=== PATIENT | male | born 1950 | race Hispanic/Latino ===

== ENCOUNTER 2019-03-03 23:42 | Inpatient (IN) | payer OTHER ==
[2019-03-04] MEDS ORDERED: NA CHLORIDE 0.9% 1,000 ML ONE (00:44)
[2019-03-04 01:05] LABS: Absolute Lymphocytes (CBC) 0.8 K/uL (0.7-4.9); Basophils % 0.6 % (0-1.3); Eosinophils % 1.2 % (0-4.4); Hematocrit 32.7 % (39.6-49.0); Lymphocytes % 9.4 % (15.3-44.8); Monocytes % 9.2 % (3.3-12.3); RBC Red Blood Cell Count 3.87 M/uL (4.33-5.43)
[2019-03-04 01:15] LABS: C-Reactive Protein 17.4 mg/L (<3.00); Potassium 4.9 mmol/L (3.5-5.1)
--- NOTE | 2019-03-04 03:25 | ER ---
Nurse's Notes [facility] Name: Reymundo Hopkins Age: 68 yrs Sex: Male : 1950 Arrival Date: 03/03/2019 Time: 23:47 Bed 6 Private MD: Minnie Quiles Atiq Diagnosis: Cellulitis both legs. Failed outpatient therapy. Diabetes Presentation: 03/03 23:57 Presenting complaint: Patient states: redness and swelling to mignon feet x 1 month. Was aa1 prescribed medication but no improvement. Transition of care: patient was not received from another setting of care. Onset of symptoms was January 2019. Risk Assessment: Do you want to hurt yourself or someone else? Patient reports no desire to harm self or others. Initial Sepsis Screen: Does the patient meet any 2 criteria? No. Patient's initial sepsis screen is negative. Does the patient have a suspected source of infection? Yes: Skin breakdown/wound. Care prior to arrival: None. 23:57 Method Of Arrival: Wheelchair aa1 23:57 Acuity: MADHAVI 3 aa1 Triage Assessment: 23:58 General: Appears in no apparent distress. comfortable, Behavior is calm, cooperative, aa1 appropriate for age. Pain: Complains of pain in right foot and left foot. Historical: - Allergies: 23:58 No Known Allergies; aa1 - PMHx: 23:58 Diabetes - IDDM; Hypertension; aa1 - PSHx: 23:58 eye surgery; aa1 - Immunization history:: Flu vaccine is not up to date. - Social history:: Smoking status: Patient/guardian denies using tobacco. - Ebola Screening: : No symptoms or risks identified at this time. Screenin/18 00:00 Abuse screen: Denies threats or abuse. Denies injuries from another. Nutritional rr5 screening: No deficits noted. Tuberculosis screening: No symptoms or risk factors identified. Fall Risk IV access (20 points). Gait- Impaired (20 pts.). Total Zendejas Fall Scale indicates Low Risk Score (25-44 pts). Fall prevention measures have been instituted. Side Rails Up X 2 Frequent Obs/Assesments occuring Family Present and informed to notify staff if they need to leave bedside As available Patient and Family Educated on Fall Prevention Program and strategies. Assessment: 00:00 General: Appears in no apparent distress. uncomfortable, Behavior is calm, cooperative, rr5 appropriate for age, Smells of foul smelling on bilateral foot.. 00:00 Pain: Complains of pain in right foot and left foot Pain does not radiate. Pain rr5 currently is 9 out of 10 on a pain scale. Quality of pain is described as aching, Pain began gradually, Is intermittent. Neuro: Level of Consciousness is awake, alert, obeys commands, Oriented to person, place, time, situation, Appropriate for age. Cardiovascular: Capillary refill < 3 seconds Patient's skin is warm and dry. Respiratory: Airway is patent Respiratory effort is even, unlabored, Respiratory pattern is regular, symmetrical. GI: No signs and/or symptoms were reported involving the gastrointestinal system. : No signs and/or symptoms were reported regarding the genitourinary system. EENT: No signs and/or symptoms were reported regarding the EENT system. Derm: Skin is intact, Skin temperature is warm Wound noted right foot and left foot Wound is redness, warm to touch bilateral foot. open wound wild mild discharge. yellow dry pus noted and blackish dry open wound on the finger toes bilateral foot. Musculoskeletal: Swelling present in right foot and left foot. 01:00 Reassessment: Patient appears in no apparent distress at this time. No changes from rr5 previously documented assessment. 02:00 Reassessment: Patient appears in no apparent distress at this time. Patient is alert, rr5 oriented x 3, equal unlabored respirations, skin warm/dry/pink. no complaints made awaiting for laboratory results. 03:15 Reassessment: Patient appears in no apparent distress at this time. Patient is alert, rr5 oriented x 3, equal unlabored respirations, skin warm/dry/pink. chatting with his edge blacker at bedside. ED provider informed for the latest BP, without orders made. 03:55 Reassessment: complaining of severe pain on the bilateral foot. ED provider aware with rr5 order made and carried out. 04:00 Reassessment: [id number] abi [phone] sumit family member contact number. rr5 05:10 Reassessment: Patient appears in no apparent distress at this time. Patient is alert, rr5 oriented x 3, equal unlabored respirations, skin warm/dry/pink. eyes closed breathing spontaneously at room air. for transfer to 4th floor. Patient states feeling better. Patient states symptoms have improved. 06:00 Reassessment: Patient appears in no apparent distress at this time. Patient is alert, rr5 oriented x 3, equal unlabored respirations, skin warm/dry/pink. transferred to 4th floor vitally stable. Vital Signs: 03/03 23:58 BP 161 / 69; Pulse 68; Resp 20; Temp 98.0(O); Pulse Ox 99% on R/A; Weight 74.84 kg; aa1 Height 5 ft. 4 in. (162.56 cm); Pain 6/10; 03/04 00:00 BP 144 / 65; Pulse 63; Resp 20; Pulse Ox 99% ; ea 01:00 BP 174 / 74; Pulse 63; Resp 19; Pulse Ox 99% ; ea 02:00 BP 187 / 71; Pulse 63; Resp 18; Pulse Ox 98% on R/A; ea 03:00 BP 167 / 74; Pulse 62; Resp 17; Pulse Ox 99% on R/A; rr5 03:50 BP 187 / 115; Pulse 69; Resp 19; Temp 97.5; Pulse Ox 99% ; rr5 05:00 BP 166 / 73; Pulse 59; Resp 17; Temp 97.5; Pulse Ox 97% on R/A; Pain 5/10; rr5 06:00 BP 145 / 70; Pulse 58; Resp 16; Pulse Ox 96% on R/A; Pain 5/10; rr5 03/03 23:58 Body Mass Index 28.32 (74.84 kg, 162.56 cm) aa1 ED Course: 03/03 23:47 Patient arrived in ED. am2 23:47 Minnie Quiles MD is Private Physician. am2 23:55 Emmanuel Byrd MD is Attending Physician. pkl 23:58 Triage completed. aa1 23:58 Arm band placed on right wrist. Patient placed in an exam room, on a stretcher. aa1 03/04 00:23 Gavino Deluca, JAYCE is Primary Nurse. rr5 00:45 Patient has correct armband on for positive identification. Placed in gown. Bed in low rr5 position. Call light in reach. Side rails up X2. Pulse ox on. NIBP on. 00:45 Initial lab(s) drawn, First set of blood cultures drawn by me. Inserted saline lock: 20 rr5 gauge in right forearm, using aseptic technique. Blood collected. 03:22 Julisa Dumas MD is Hospitalizing Provider. pkl 04:40 Wound care: to cellulitis located on right foot and left foot was cleaned with rr5 Hibiclens, irrigated with normal saline, dressed with Neosporin, 4X4s, Kerlix, Patient tolerated well. 05:41 No provider procedures requiring assistance completed. Patient admitted, IV remains in rr5 place. intact, No redness/swelling at site. Administered Medications: 00:50 Drug: NS 0.9% 1000 ml Route: IV; Rate: 125 ml/hr; Site: right forearm; rr5 04:02 Drug: Zofran 4 mg Route: IVP; Site: right forearm; rr5 04:05 Drug: morphine 4 mg Route: IVP; Site: right forearm; rr5 Output: 02:50 Urine: 600ml (Voided); Total: 600ml. rr5 Outcome: 03:24 Decision to Hospitalize by Provider. pkl 05:41 Admitted to Tele accompanied by nurse, via stretcher, room 414, with chart, Report rr5 called to celine 05:41 Condition: stable 05:41 Instructed on the need for admit. 06:18 Patient left the ED. ar5 Signatures: Sophie Melendrez RN RN [email or web address] Emmanuel Byrd MD MD pkl Virginie Hoskins Elena, RN RN ea Roque, Raymond, RN RN rr5 Lila Calvo ar5 Corrections: (The following items were deleted from the chart) 04:18 00:00 General: Appears in no apparent distress. uncomfortable, Behavior is calm, rr5 cooperative, appropriate for age, rr5
--- NOTE | 2019-03-04 03:25 | EDPHYS ---
Physician Documentation [facility] Name: Reymundo Hopkins Age: 68 yrs Sex: Male : 1950 Arrival Date: 03/03/2019 Time: 23:47 Bed 6 Private MD: Minnie Quiles Atiq ED Physician Emmanuel Byrd HPI: 03/04 00:17 This 68 yrs old Male presents to ER via Wheelchair with complaints of Feet pkl Swelling - redness. 00:17 The patient presents with pain, that is acute, swelling, both legs. Onset: The pkl symptoms/episode began/occurred 1 month(s) ago. Seen by PCP multiple times and given medications without improvement. Historical: - Allergies: 03/03 23:58 No Known Allergies; aa1 - PMHx: 23:58 Diabetes - IDDM; Hypertension; aa1 - PSHx: 23:58 eye surgery; aa1 - Immunization history:: Flu vaccine is not up to date. - Social history:: Smoking status: Patient/guardian denies using tobacco. - Ebola Screening: : No symptoms or risks identified at this time. ROS: 03/04 00:17 Eyes: Negative for injury, pain, redness, and discharge, ENT: Negative for injury, pkl pain, and discharge, Neck: Negative for injury, pain, and swelling, Cardiovascular: Negative for chest pain, palpitations, and edema, Respiratory: Negative for shortness of breath, cough, wheezing, and pleuritic chest pain, Abdomen/GI: Negative for abdominal pain, nausea, vomiting, diarrhea, and constipation, Back: Negative for injury and pain, : Negative for injury, bleeding, discharge, and swelling, Neuro: Negative for headache, weakness, numbness, tingling, and seizure. MS/extremity: Positive for erythema, pain, swelling, of the both legs. Neuro: Negative for acute changes. Exam: 00:21 Head/Face: Normocephalic, atraumatic. Eyes: Pupils equal round and reactive to light, pkl extra-ocular motions intact. Lids and lashes normal. Conjunctiva and sclera are non-icteric and not injected. Cornea within normal limits. Periorbital areas with no swelling, redness, or edema. ENT: Nares patent. No nasal discharge, no septal abnormalities noted. Tympanic membranes are normal and external auditory canals are clear. Oropharynx with no redness, swelling, or masses, exudates, or evidence of obstruction, uvula midline. Mucous membranes moist. Neck: Trachea midline, no thyromegaly or masses palpated, and no cervical lymphadenopathy. Supple, full range of motion without nuchal rigidity, or vertebral point tenderness. No Meningismus. Chest/axilla: Normal chest wall appearance and motion. Nontender with no deformity. No lesions are appreciated. Cardiovascular: Regular rate and rhythm with a normal S1 and S2. No gallops, murmurs, or rubs. Normal PMI, no JVD. No pulse deficits. Respiratory: Lungs have equal breath sounds bilaterally, clear to auscultation and percussion. No rales, rhonchi or wheezes noted. No increased work of breathing, no retractions or nasal flaring. Abdomen/GI: Soft, non-tender, with normal bowel sounds. No distension or tympany. No guarding or rebound. No evidence of tenderness throughout. Back: No spinal tenderness. No costovertebral tenderness. Full range of motion. Neuro: Awake and alert, GCS 15, oriented to person, place, time, and situation. Cranial nerves II-XII grossly intact. Motor strength 5/5 in all extremities. Sensory grossly intact. Cerebellar exam normal. Normal gait. 00:21 Musculoskeletal/extremity: Extremities: grossly normal except: noted in the both legs: erythema, pain, swelling. Vital Signs: 03/03 23:58 BP 161 / 69; Pulse 68; Resp 20; Temp 98.0(O); Pulse Ox 99% on R/A; Weight 74.84 kg; aa1 Height 5 ft. 4 in. (162.56 cm); Pain 6/10; 03/04 00:00 BP 144 / 65; Pulse 63; Resp 20; Pulse Ox 99% ; ea 01:00 BP 174 / 74; Pulse 63; Resp 19; Pulse Ox 99% ; ea 02:00 BP 187 / 71; Pulse 63; Resp 18; Pulse Ox 98% on R/A; ea 03:00 BP 167 / 74; Pulse 62; Resp 17; Pulse Ox 99% on R/A; rr5 03:50 BP 187 / 115; Pulse 69; Resp 19; Temp 97.5; Pulse Ox 99% ; rr5 05:00 BP 166 / 73; Pulse 59; Resp 17; Temp 97.5; Pulse Ox 97% on R/A; Pain 5/10; rr5 06:00 BP 145 / 70; Pulse 58; Resp 16; Pulse Ox 96% on R/A; Pain 5/10; rr5 03/03 23:58 Body Mass Index 28.32 (74.84 kg, 162.56 cm) aa1 MDM: 03/03 23:55 Patient medically screened. pk 03/04 03:21 Data reviewed: vital signs, nurses notes, lab test result(s). ED course: Talked to Dr. edwardo Dumas, for admission. 03/04 00:16 Order name: CBC with Diff; Complete Time: 02:24 pk 03/04 00:16 Order name: Chem 7; Complete Time: 02:24 pk 03/04 00:16 Order name: Hemoglobin A1c pk 03/04 00:16 Order name: Wound Culture pk 03/04 00:16 Order name: Sed Rate; Complete Time: 02:24 pk 03/04 00:16 Order name: CRP; Complete Time: 02:24 pk 03/04 00:16 Order name: Lactate; Complete Time: 02:24 pk 03/04 00:16 Order name: D-Dimer; Complete Time: 02:24 pk 03/04 00:16 Order name: Blood Culture Adult (2) [facility] 03/04 04:26 Order name: Consistent Carb (ADA) [address] [facility] 03/04 04:47 Order name: Urine Microscopic Only rr5 Administered Medications: 00:50 Drug: NS 0.9% 1000 ml Route: IV; Rate: 125 ml/hr; Site: right forearm; rr5 04:02 Drug: Zofran 4 mg Route: IVP; Site: right forearm; rr5 04:05 Drug: morphine 4 mg Route: IVP; Site: right forearm; rr5 Disposition: 03/04/19 03:24 Hospitalization ordered by Julisa Dumas for Inpatient Admission. Preliminary diagnosis is Cellulitis both legs. Failed outpatient therapy. Diabetes. - Bed requested for Telemetry/MedSurg (Inpatient). - Status is Inpatient Admission. ar5 - Condition is Stable. - Problem is new. - Symptoms are unchanged. UTI on Admission? No Signatures: Dispatcher [employer] EDDarline Villanueva, JAYCE EDUARDO dw Sophie Melendrez RN RN aa1 Emmanuel Byrd MD MD pkl Gavino Deluca RN RN rr5 Lila Calvo ar5 Corrections: (The following items were deleted from the chart) 04:49 03:24 Hospitalization Ordered by Julisa Dumas MD for Inpatient Admission. Preliminary dw diagnosis is Cellulitis both legs. Failed outpatient therapy. Diabetes. Bed requested for Telemetry/MedSurg (Inpatient). Status is Inpatient Admission. Condition is Stable. Problem is new. Symptoms are unchanged. UTI on Admission? No. pkl 06:18 04:49 03/04/2019 03:24 Hospitalization Ordered by Julisa Dumas MD for Inpatient ar5 Admission. Preliminary diagnosis is Cellulitis both legs. Failed outpatient therapy. Diabetes. Bed requested for Telemetry/MedSurg (Inpatient). Status is Inpatient Admission. Condition is Stable. Problem is new. Symptoms are unchanged. UTI on Admission? No. dw
[2019-03-04] MEDS ORDERED: MORPHINE 4 MG/ML SYR ONE (04:16)
[2019-03-04] MEDS ORDERED: ONDANSETRON 4 MG/2 ML VIAL ONE (04:16)
[2019-03-04] MEDS ORDERED: MORPHINE 2 MG/ML SYR IV PRN (04:17)
[2019-03-04] MEDS ORDERED: ACETAMINOPHEN 500 MG TAB PO PRN (04:17)
[2019-03-04] MEDS ORDERED: ALPRAZOLAM 0.25 MG TABLET PO PRN (04:17)
[2019-03-04] MEDS ORDERED: ONDANSETRON 4 MG/2 ML VIAL IV PRN (04:17)
[2019-03-04] MEDS ORDERED: Levofloxacin500mg IV 500 MG/100 ML BAG IV SCH (05:00)
[2019-03-04] MEDS ORDERED: Levofloxacin500mg IV 500 MG/100 ML BAG IV ONE (06:30)
[2019-03-04] MEDS ORDERED: VANCOMYCIN 1.75 GM in NA CHLORIDE 0.9% 500 ML IVPB ONE (07:30)
[2019-03-04] MEDS: ENOXAPARIN 40 MG/0.4 ML SQ SCH (08:09)
--- NOTE | 2019-03-04 08:49 | P.HP ---
Certification for Inpatient Patient admitted to: Inpatient With expected LOS: >2 Midnights Patient will require the following post-hospital care: Home Health Services Practitioner: I am a practitioner with admitting privileges, knowledge of patient current condition, hospital course, and medical plan of care. Services: Services provided to patient in accordance with Admission requirements found in Title 42 Section 412.3 of the Code of Federal Regulations Patient History Date of Service: 03/04/19 Reason for admission: Diabetic foot wound with cellulitis of the bilateral lower extremities History of Present Illness: Patient is a 68-year-old gentleman who is been taking parents in lung in these for quite a while. He has had significant cellulitis of the lower extremities but has worsened over the last few days. He has been a large amount of drainage any also states his feet have been excoriated. He has had breakdown and it looks like he has significant peripheral arterial disease. He quit smoking about 20 years ago. He states that he has not seen a doctor in quite a while. He will need admission for treatment of his wounds of the lower extremity as well as evaluation for peripheral arterial disease. Will get Infectious Disease consultation as well. Allergies No Known Allergies Allergy (Unverified 03/04/19 04:50) Home Medications: Amlodipine [Norvasc] 5 mg PO DAILY 03/04/19 Amoxicillin 500 mg PO TID 03/04/19 Aspirin [Aspirin EC 81 MG] 81 mg PO DAILY 03/04/19 Betamethasone Dipropionate 45 gm TP DAILY 03/04/19 Colchicine 0.6 mg PO DAILY 03/04/19 Febuxostat [Uloric] 80 mg PO DAILY 03/04/19 Furosemide 20 mg PO DAILY 03/04/19 Lisinopril [Zestril] 2.5 mg PO DAILY 03/04/19 Magnesium Oxide [Magnesium] 400 mg PO DAILY 03/04/19 Metformin HCl [Glucophage] 500 mg PO BIDWM 03/04/19 Metoprolol Tartrate 100 mg PO BID 03/04/19 Simvastatin 20 mg PO DAILY 03/04/19 - Past Medical/Surgical History Has patient received pneumonia vaccine in the past: No -: Hypertension -: Gout -: Diabetes mellitus Past Surgical History: Patient denies surgical history - Family History Father Family History: Reviewed- Non-Contributory - Social History Smoking Status: Former smoker Alcohol use: No CD- Drugs: No Review of Systems 10-point ROS is otherwise unremarkable Physical Examination - Vital Signs Temperature: 97.5 F Blood Pressure: 174/76 Pulse: 18 Respirations: 68 Pulse Ox (%): 98 - Physical Exam General: Alert, In no apparent distress, Oriented x3 HEENT: Atraumatic, PERRLA, Mucous membr. moist/pink, EOMI, Sclerae nonicteric Neck: Supple, 2+ carotid pulse no bruit, No LAD, Without JVD or thyroid abnormality Respiratory: Clear to auscultation bilaterally, Normal air movement Cardiovascular: Regular rate/rhythm, Normal S1 S2, No murmurs Gastrointestinal: Normal bowel sounds, Soft and benign, Non-distended, No tenderness Musculoskeletal: No clubbing, No swelling, No tenderness, Other (Diminished pulses of lower extremities) Integumentary: No rashes, Diabetic ulcer Neurological: Normal gait, Normal speech, Normal strength at 5/5 x4 extr, Normal tone, Cranial nerves 3-12 intact, Normal affect, Abnormal sensation Lymphatics: No axilla or inguinal lymphadenopathy - Studies Laboratory Data (last 24 hrs) 03/04/19 00:45: Sodium 134 L, Potassium 4.9, BUN 47 H, Creatinine 1.60 H, Glucose 126 H 03/04/19 00:45: WBC 8.8, Hgb 11.0 L, Hct 32.7 L, Plt Count 163 Assessment & Plan - Problems (Diagnosis) (1) Diabetic foot infection Current Visit: Yes Status: Acute (2) Bilateral lower leg cellulitis Current Visit: Yes Status: Acute (3) Peripheral arterial disease Current Visit: Yes Status: Acute (4) Non-compliant behavior Current Visit: Yes Status: Acute (5) Hypertension Current Visit: Yes Status: Acute - Plan 1. Continue with IV antibiotic 2. Continue with local wound care 3. Wound care consultation/ID consultation 4. Gentle IV hydration 5. Monitor CBC & order arterial Dopplers 6. Strict blood sugar monitoring 7. Pain control 8. GI and DVT prophylaxis Discharge Plan: Home Plan to discharge in: Greater than 2 days - Advance Directives Does patient have a Living Will: No Does patient have a Durable POA for Healthcare: No - Code Status/Comfort Care Code Status Assessed: Yes Code Status: Full Code Critical Care: No Time Spent Managing PTS Care (In Minutes): 45
[2019-03-04] MEDS: NA CHLORIDE 0.9% 1,000 ML IV SCH ×2 (10:30→18:20)
--- NOTE | 2019-03-04 10:47 | RAD REPORT ---
EXAM DESCRIPTION: US - Upper Lower Extrem Art Multi - 03/04/2019 10:16 am CLINICAL HISTORY: Leg pain/peripheral vascular disease COMPARISON: None FINDINGS: Waveforms of right common femoral, right superficial femoral, arteries biphasic Waveform of the right popliteal, monophasic. Right dorsalis pedis and right posterior tibial arteries were not imaged. It is unclear this is secon agustin to a bandage in place or no flow. However significant disease is suspected Waveforms of the left common femoral, biphasic Waveform of the left common femoral varies from biphasic to monophasic Waveform of the left popliteal, left posterior tibial arteries biphasic. Flow within left dorsalis pe dis artery not seen High-grade stenosis within the right superficial femoral artery suspected. IMPRESSION: Moderate tissue disease is present throughout the arteries of the lower extremities bila terally. A high-grade stenosis of the right superficial femoral artery suspected Little to no flow within the right dorsalis pedis, right posterior tibial and left dorsalis pedis art chi
[2019-03-04] MEDS ORDERED: ENOXAPARIN 40 MG/0.4 ML SQ SCH (17:00)
[2019-03-04] MEDS: TRAMADOL HCL 50 MG TAB PO PRN (17:03)
--- NOTE | 2019-03-04 19:50 | CON ---
Date of Consultation: 03/04/[address] Izaguirre on 03/04/2019. I saw the patient on 03/04/2019. Reason For Consultation: Peripheral arterial disease. History Of Present Illness: The patient is a 68-year-old Latin-[place] male, who has a history of h ypertension, dyslipidemia, diabetes, and gout came in with bilateral cellulitis. Apparently, an julito rial Doppler was positive for right SFA stenosis. The patient denied any claudication, he just has p ain in his feet. Has had fever, has had some chills. Denied any cardiac symptoms. He has been taki ng antibiotics as an outpatient. He is now here on vancomycin and amoxicillin. Wound Care has been consulted, Infectious Disease has been consulted, and I believe Surgery has been consulted as well. Allergies: NONE. Review of Systems: Negative. Social History: Negative. Family History: Noncontributory. Medications: At home include Zocor, metoprolol, Norvasc, colchicine, Lasix, metformin, lisinopril, a nd Uloric. Physical Examination: Vital Signs: Stable. He was slightly hypertensive with blood pressure of 170 when he came in. Sinu s rhythm. Afebrile. HEENT: Negative. Neck: Supple. No bruit, lymphadenopathy, JVD, or thyromegaly. Chest: Clear to auscultation and percussion. Cardiac: Revealed a regular rhythm and rate with an S4 gallop. No murmurs or rubs. Abdomen: Benign. Extremities: Revealed no clubbing, no cyanosis, but he had cellulitis in both feet with erythema and pain and skin discoloration that is consistent more with venous insufficiency. Diagnostic Data: Creatinine is 1.6. D-dimer was 730. His C-reactive protein was 17. EKG was unrem arkable. Chest x-ray was unremarkable. Impression And Plan: 1.Bilateral cellulitis on IV antibiotics for now. I do not think this is related to his superficial femoral artery stenosis. This will have to be addressed later. We will prefer that he get at least 4 to 6 weeks of antibiotics before we do an angiogram. We will have to deal with his renal issue as well. I will continue his present regimen. Consider adding aspirin and Plavix to his regimen. I w ill make sure that we see him as an outpatient and set up an abdominal angiogram with runoff in the [facility]. He will have to have a cardiac workup as well. 2.Blood pressure. Systolic blood pressure is slightly elevated. We can certainly increase his meto prolol. I would not increase his lisinopril with his kidney function as is. 3.Diabetes. 4.Dyslipidemia. 5.Gout. We will continue to follow Mr. Hopkins while he is in the hospital. NEFTALI/ADRI Voice ID: [id number] Report ID: [id number]
[2019-03-04] MEDS: ATORVASTATIN 10 MG TAB PO SCH (21:20)
[2019-03-04] MEDS: METOPROLOL TAR 50 MG TAB PO SCH (21:20)
--- NOTE | 2019-03-04 22:17 | P.CNS ---
Date of Consult: 03/04/19 Reason for Consult: CKD Chief Complaint: Diabetic foot wound with cellulitis of the bilateral lower extremities History of Present Illness: Patient is a 68-year-old gentleman who is been taking parents in lung in these for quite a while. He has had significant cellulitis of the lower extremities but has worsened over the last few days. He has been a large amount of drainage any also states his feet have been excoriated. He has had breakdown and it looks like he has significant peripheral arterial disease. He quit smoking about 20 years ago. He states that he has not seen a doctor in quite a while. He will need admission for treatment of his wounds of the lower extremity as well as evaluation for peripheral arterial disease. Will get Infectious Disease consultation as well. 00:17 This 68 yrs old Male presents to ER via Wheelchair with complaints of Feet pkl Swelling - redness. 00:17 The patient presents with pain, that is acute, swelling, both legs. Onset : The pkl symptoms/episode began/occurred 1 month(s) ago. Seen by PCP multiple times and given medications without improvement. Allergies No Known Allergies Allergy (Unverified 03/04/19 04:50) Home Medications: Amlodipine [Norvasc] 5 mg PO DAILY 03/04/19 Amoxicillin 500 mg PO TID 03/04/19 Aspirin [Aspirin EC 81 MG] 81 mg PO DAILY 03/04/19 Betamethasone Dipropionate 45 gm TP DAILY 03/04/19 Colchicine 0.6 mg PO DAILY 03/04/19 Febuxostat [Uloric] 80 mg PO DAILY 03/04/19 Furosemide 20 mg PO DAILY 03/04/19 Lisinopril [Zestril] 2.5 mg PO DAILY 03/04/19 Magnesium Oxide [Magnesium] 400 mg PO DAILY 03/04/19 Metformin HCl [Glucophage] 500 mg PO BIDWM 03/04/19 Metoprolol Tartrate 100 mg PO BID 03/04/19 Simvastatin 20 mg PO DAILY 03/04/19 - Past Medical/Surgical History -: Hypertension -: Gout -: Diabetes mellitus - Family History Father Family History: Reviewed- Non-Contributory - Social History Alcohol use: No CD- Drugs: No Review of Systems 10-point ROS is otherwise unremarkable Musculoskeletal: Leg Pain, Foot Pain Neurological: Weakness Physical Examination Temp Pulse Resp BP Pulse Ox 98.4 F 63 18 162/70 H 99 03/04/19 20:00 03/04/19 21:20 03/04/19 20:00 03/04/19 21:20 03/04/19 20:00 Laboratory Data (last 24 hrs) 03/04/19 00:45: Sodium 134 L, Potassium 4.9, BUN 47 H, Creatinine 1.60 H, Glucose 126 H 03/04/19 00:45: WBC 8.8, Hgb 11.0 L, Hct 32.7 L, Plt Count 163 Imagings Data: EXAM DESCRIPTION: US - Upper Lower Extrem Art Multi - 03/04/2019 10:16 am CLINICAL HISTORY: Leg pain/peripheral vascular disease COMPARISON: None FINDINGS: Waveforms of right common femoral, right superficial femoral, arteries biphasic Waveform of the right popliteal, monophasic. Right dorsalis pedis and right posterior tibial arteries were not imaged. It is unclear this is secondary to a bandage in place or no flow. However significant disease is suspected Waveforms of the left common femoral, biphasic Waveform of the left common femoral varies from biphasic to monophasic Waveform of the left popliteal, left posterior tibial arteries biphasic. Flow within left dorsalis pedis artery not seen High-grade stenosis within the right superficial femoral artery suspected IMPRESSION: Moderate tissue disease is present throughout the arteries of the lower extremities bilaterally. A high-grade stenosis of the right superficial femoral artery suspected Little to no flow within the right dorsalis pedis, right posterior tibial and left dorsalis pedis arteries Conclusions/Impression: A/ CKD III. Hyponatremia. Bilateral LE Cellulitis. PAD with BL LE Ulcers. DM II with CKD. HTN with CKD. Anemia in chronic illness. P/ Continue current POC and Medications. Continue gentle NS. Continue abx. Monitor vanco level. Follow up cultures. Wound care to the LE as ordered. No NSAIDs. AM labs. Alexis weight. Thank you kindly for the consultation.
[2019-03-05] MEDS: NA CHLORIDE 0.9% 1,000 ML IV SCH ×4 (00:05→20:15)
[2019-03-05] MEDS: TRAMADOL HCL 50 MG TAB PO PRN ×2 (00:20→06:13)
[2019-03-05] MEDS ORDERED: Levofloxacin 250mg IV 250 MG/50 ML BAG IV SCH (06:00)
[2019-03-05 06:09] LABS: Absolute Lymphocytes (CBC) 0.6 K/uL (0.7-4.9); Basophils % 0.3 % (0-1.3); Eosinophils % 1.1 % (0-4.4); Hematocrit 29.7 % (39.6-49.0); Lymphocytes % 8.7 % (15.3-44.8); MPV 7.8 fL (7.6-11.3); Monocytes % 10.1 % (3.3-12.3); RBC Red Blood Cell Count 3.54 M/uL (4.33-5.43)
[2019-03-05 06:26] LABS: Albumin 2.9 g/dL (3.4-5.0); Bilirubin Total 0.5 mg/dL (0.2-1.0); Magnesium 1.8 mg/dL (1.8-2.4); Phosphorus 2.5 mg/dL (2.5-4.9); Potassium 5.1 mmol/L (3.5-5.1); Protein, Total 6.9 g/dL (6.4-8.2)
[2019-03-05] MEDS ORDERED: MAGNESIUM SULFATE 1 gm IVPB 1 GM/100 ML BAG IV ONE (06:42)
[2019-03-05 06:45] LABS: Urine Appearance CLEAR; Urine Bilirubin NEGATIVE (NEG); Urine Blood NEGATIVE (NEG); Urine Color YELLOW; Urine Glucose NEGATIVE (NEG); Urine Protein NEGATIVE (NEG); Urine Specific Gravity 1.015 (1.005-1.030); Urine Urobilinogen 0.2 mg/dL (0.2-1.0); Urine pH 7.5 (5.0-7.0)
[2019-03-05 07:14] LABS: Urine Bacteria NONE SEEN /HPF (NONE SEEN); Urine Culture Reflex Order NOT NEEDED; Urine RBC NONE SEEN /HPF (NONE SEEN)
[2019-03-05] MEDS ORDERED: POTASS/SODIUM PHOSPHATE 1 PKT POWD.PACK PO SCH ×2 (08:00)
[2019-03-05] MEDS: HYDROCODONE/APAP 10/325 TAB PO PRN ×2 (08:33→16:43)
[2019-03-05] MEDS: METOPROLOL TAR 50 MG TAB PO SCH ×2 (08:34→20:06)
[2019-03-05] MEDS: ENOXAPARIN 40 MG/0.4 ML SQ SCH (08:35)
[2019-03-05] MEDS ORDERED: MEDIHONEY 44 ML TOPICAL TUBE TOP SCH (09:00)
[2019-03-05] MEDS ORDERED: AMLODIPINE 5 MG TAB PO SCH (09:00)
[2019-03-05] MEDS ORDERED: LISINOPRIL 5 MG TAB PO SCH (09:00)
[2019-03-05] MEDS ORDERED: ASPIRIN EC 81 MG TAB PO SCH (09:00)
[2019-03-05] MEDS ORDERED: FUROSEMIDE 20 MG TABLET PO SCH (09:00)
--- NOTE | 2019-03-05 11:32 | P.PN ---
Subjective Date of Service: 03/05/19 Chief Complaint: Diabetic foot wound with cellulitis of the bilateral lower extremities Patient seen and examined at bedside with RN. Chart reviewed. Patient is mainly Slovak speaking. This morning has no complaints to offer. Denies having any nausea vomiting abdominal pain. Does have outside food at the bedside. Educated extensively on controlling the blood sugars here in the hospital for proper wound healing. Review of Systems 10-point ROS is otherwise unremarkable Physical Examination - Vital Signs Temperature: 97.7 F Blood Pressure: 174/74 Pulse: 62 Respirations: 16 Pulse Ox (%): 99 - Physical Exam General: Alert, In no apparent distress HEENT: Atraumatic, PERRLA, EOMI Neck: Supple, JVD not distended Respiratory: Clear to auscultation bilaterally, Normal air movement Cardiovascular: Regular rate/rhythm, Normal S1 S2 Gastrointestinal: Normal bowel sounds, No tenderness Musculoskeletal: Erythema, Tenderness, Warmth, Other (Please refer to the wound Care no once for a picture of the actual wound and cellulitis on bilateral lower extremity.) Integumentary: No rashes Neurological: Normal speech, Normal tone, Normal affect Lymphatics: No axilla or inguinal lymphadenopathy - Studies Microbiology Data (last 24 hrs): 03/04/19 00:35 Wound - L Leg (Lower) Gram Stain - Final Medications List Reviewed: Yes Assessment And Plan - Current Problems (Diagnosis) (1) Bilateral lower leg cellulitis Current Visit: Yes Status: Acute Plan: Bilateral lower leg cellulitis with right-sided necrotic 2nd toe -patient currently started on IV vancomycin and Levaquin -infectious disease consulted. Appreciate recommendation -recommend patient to get 4-6 weeks of total IV antibiotics for osteomyelitis and bilateral lower extremity cellulitis -wound care consulted here in the hospital recommendations are in the chart -patient also has severe PAD cardiology was consulted who recommended did outpatient workup after 4-6 weeks of IV antibiotics -Case management will be consulted for placement of long-term acute care facility for 6 weeks IV antibiotic (2) Diabetic foot infection Current Visit: Yes Status: Chronic Plan: see above (3) Hypertension Current Visit: Yes Status: Chronic Qualifiers: Hypertension type: essential hypertension Qualified Code(s): I10 - Essential (primary) hypertension (4) Non-compliant behavior Current Visit: Yes Status: Chronic (5) Peripheral arterial disease Current Visit: Yes Status: Chronic Discharge Plan: Home Plan to discharge in: Greater than 2 days - Code Status/Comfort Care Code Status Assessed: Yes Critical Care: No
--- NOTE | 2019-03-05 11:45 | CON ---
History Of Present Illness: This is a 68-year-old male. I was consulted for osteomyelitis of right ankle and possible second toe. The patient came in with significant history of diabetes mellitus, pe ripheral arterial disease. Denies any headache, nausea, vomiting, chest pain, abdominal pain, consti pation, or diarrhea. Had cellulitis on time of arrival. No other problems. Past Medical History: Hypertension, gout, diabetes mellitus, hypercholesterolemia. Social History: Tobacco positive. Alcohol negative. Family History: Noncontributory. Medications: Levaquin and vancomycin. Review of Systems: A 10-point review was performed. Physical Examination: General: This is a 68-year-old male. Vital Signs: Temperature 98, pulse 78, respirations 16, blood pressure 174/73. HEENT: Unremarkable. Poor dental hygiene. Neck: Supple. No JVD no lymphadenopathy. Lungs: Basal crackles. Heart: S1, S2. Regular. Abdomen: Soft, nontender. Bowel sounds present. Extremities: Right ankle medial malleolus with open necrotic area with possible bone exposure second toe with scab formation. Left foot medial malleolus also noted a small scab area. Foul smell noted on the right side. The patient has poor circulation with decreased pedal pulses. Laboratory Data: Shows WBC 7.2, hemoglobin 10.2, platelets are 129. Chemistry shows sodium 138, pot assium 5.1, chloride 107, bicarb 23, BUN 24, creatinine 1.2, glucose 102. Micro data shows blood cul tures no growth for 24 hour; wound cultures 3+ coag positive and 3+ gram-negative rods. Assessment And Plan: A 68-year-old male with significant history of diabetes mellitus and peripheral arterial disease with right ankle osteomyelitis and second toe diabetic foot ulcer. We will recomme nd 6 weeks of IV antibiotic and hyperbaric treatment. Also recommend to have Dakin apply to the righ t medial ankle and Iodosorb or SilvaSorb to the second toe and left foot wounds on daily basis. Cont inue antibiotic and supportive care. NF/MODL Voice ID: [id number] Report ID: [id number]
--- NOTE | 2019-03-05 17:02 | P.DS ---
Admission Date: 03/04/19 Discharge Date: 03/05/19 Reason for Admission: Diabetic foot wound with cellulitis of the bilateral lower extremities - Problems (1) Bilateral lower leg cellulitis Current Visit: Yes Status: Acute (2) Diabetic foot infection Current Visit: Yes Status: Chronic (3) Hypertension Current Visit: Yes Status: Chronic Qualifiers: Hypertension type: essential hypertension Qualified Code(s): I10 - Essential (primary) hypertension (4) Non-compliant behavior Current Visit: Yes Status: Chronic (5) Peripheral arterial disease Current Visit: Yes Status: Chronic Brief History of Present Illness: Patient is a 68-year-old gentleman who is been taking parents in lung in these for quite a while. He has had significant cellulitis of the lower extremities but has worsened over the last few days. He has been a large amount of drainage any also states his feet have been excoriated. He has had breakdown and it looks like he has significant peripheral arterial disease. He quit smoking about 20 years ago. He states that he has not seen a doctor in quite a while. He will need admission for treatment of his wounds of the lower extremity as well as evaluation for peripheral arterial disease. Will get Infectious Disease consultation as well. Hospital Course: Patient did well overall while here in the hospital Patient was initially admitted to the hospital for bilateral lower extremity cellulitis wound care and ID was consulted. Given the extensive nature of the wound patient was suggested to get IV antibiotics for 6 weeks for possible osteomyelitis and hyperbaric oxygenation will help in healing time. Patient bilateral upper extremity and cellulitis is most likely secondary to uncontrolled diabetes and PAD. Cardiology was also consulted who recommended the 6 weeks of antibiotics and outpatient care for the PAD. Patient was accepted at long-term acute care facility and thus was transferred there for further care. Vital Signs/Physical Exam: Temp Pulse Resp BP Pulse Ox 98.3 F 63 18 186/77 H 97 03/05/19 16:00 03/05/19 16:00 03/05/19 16:00 03/05/19 16:00 03/05/19 16:00 General: Alert, In no apparent distress HEENT: Atraumatic, PERRLA, EOMI Neck: Supple, JVD not distended Respiratory: Clear to auscultation bilaterally, Normal air movement Cardiovascular: Regular rate/rhythm, Normal S1 S2 Gastrointestinal: Normal bowel sounds, No tenderness Musculoskeletal: Erythema, Tenderness, Warmth Integumentary: No rashes Neurological: Normal speech, Normal tone, Normal affect Lymphatics: No axilla or inguinal lymphadenopathy Laboratory Data at Discharge: WBC 7.2 K/uL (4.3-10.9) D 03/05/19 05:38 Hgb 10.2 g/dL (13.6-17.9) L 03/05/19 05:38 Hct 29.7 % (39.6-49.0) L 03/05/19 05:38 Plt Count 129 K/uL (152-406) L D 03/05/19 05:38 Sodium 138 mmol/L (136-145) 03/05/19 05:38 Potassium 5.1 mmol/L (3.5-5.1) 03/05/19 05:38 BUN 24 mg/dL (7-18) H D 03/05/19 05:38 Creatinine 1.20 mg/dL (0.55-1.3) 03/05/19 05:38 Glucose 102 mg/dL (74-106) 03/05/19 05:38 Uric Acid 4.0 mg/dL (3.5-7.2) 03/05/19 05:38 Phosphorus 2.5 mg/dL (2.5-4.9) 03/05/19 05:38 Magnesium 1.8 mg/dL (1.8-2.4) 03/05/19 05:38 Total Bilirubin 0.5 mg/dL (0.2-1.0) 03/05/19 05:38 AST 15 U/L (15-37) 03/05/19 05:38 ALT 36 U/L (12-78) 03/05/19 05:38 Alkaline Phosphatase 106 U/L (45-117) 03/05/19 05:38 Home Medications: Amlodipine [Norvasc] 5 mg PO DAILY 03/04/19 Amoxicillin 500 mg PO TID 03/04/19 Aspirin [Aspirin EC 81 MG] 81 mg PO DAILY 03/04/19 Betamethasone Dipropionate 45 gm TP DAILY 03/04/19 Colchicine 0.6 mg PO DAILY 03/04/19 Febuxostat [Uloric] 80 mg PO DAILY 03/04/19 Furosemide 20 mg PO DAILY 03/04/19 Lisinopril [Zestril] 2.5 mg PO DAILY 03/04/19 Magnesium Oxide [Magnesium] 400 mg PO DAILY 03/04/19 Metformin HCl [Glucophage] 500 mg PO BIDWM 03/04/19 Metoprolol Tartrate 100 mg PO BID 03/04/19 Simvastatin 20 mg PO DAILY 03/04/19
[2019-03-05] MEDS ORDERED: VANCOMYCIN 1.25 GM in NA CHLORIDE 0.9% 250 ML IVPB SCH (20:00)
[2019-03-05] MEDS: ATORVASTATIN 10 MG TAB PO SCH (20:06)
--- NOTE | 2019-03-05 21:51 | P.PN ---
Date of Service: 03/05/19 Vital Signs Temp Pulse Resp BP Pulse Ox 98.3 F 66 18 152/88 H 97 03/05/19 16:00 03/05/19 20:06 03/05/19 17:00 03/05/19 20:06 03/05/19 16:00 Microbiology Results 03/04/19 00:35 Wound - L Leg (Lower) Gram Stain - Final 03/04/19 00:35 Wound - L Leg (Lower) Culture & Sensitivity - Preliminary 03/04/19 01:05 Blood - Blood Aerobic Blood Culture - Preliminary No growth in 24 hours. 03/04/19 01:05 Blood - Blood Anaerobic Blood Culture - Preliminary No growth in 24 hours. 03/04/19 00:45 Blood - Blood Aerobic Blood Culture - Preliminary No growth in 24 hours. 03/04/19 00:45 Blood - Blood Anaerobic Blood Culture - Preliminary No growth in 24 hours. Assessment/ Plan: Nephrology Persistent LE pain. CPS stable without CP or SOB. No acute events overnight. Vitals, medications, blood work and imaging reviewed in the chart. NAD. NCAT. MMM. CTA. RRR. Soft Abd. No C/C/E. BL LE erythemas with scattered ulcers. AAO. Normal speech. Laboratory Data (last 24 hrs) 03/04/19 00:45: Sodium 134 L, Potassium 4.9, BUN 47 H, Creatinine 1.60 H, Glucose 126 H 03/04/19 00:45: WBC 8.8, Hgb 11.0 L, Hct 32.7 L, Plt Count 163 Imagings Data: EXAM DESCRIPTION: US - Upper Lower [facility] - 03/04/2019 10:16 am CLINICAL HISTORY: Leg pain/peripheral vascular disease COMPARISON: None FINDINGS: Waveforms of right common femoral, right superficial femoral, arteries biphasic Waveform of the right popliteal, monophasic. Right dorsalis pedis and right posterior tibial arteries were not imaged. It is unclear this is secondary to a bandage in place or no flow. However significant disease is suspected Waveforms of the left common femoral, biphasic Waveform of the left common femoral varies from biphasic to monophasic Waveform of the left popliteal, left posterior tibial arteries biphasic. Flow within left dorsalis pedis artery not seen High-grade stenosis within the right superficial femoral artery suspected IMPRESSION: Moderate tissue disease is present throughout the arteries of the lower extremities bilaterally. A high-grade stenosis of the right superficial femoral artery suspected Little to no flow within the right dorsalis pedis, right posterior tibial and left dorsalis pedis arteries Conclusions/Impression: A/ CKD III. Hyponatremia. Bilateral LE Cellulitis. PAD with BL LE Ulcers. DM II with CKD. HTN with CKD. Anemia in chronic illness. P/ Continue current POC and Medications. Continue gentle NS. Continue abx. Monitor vanco level. Follow up cultures. Wound care to the LE as ordered. No NSAIDs. AM labs. Alexis weight.
--- NOTE | 2019-03-06 06:27 | PN ---
Date of Progress Note: 03/04/2019 Mr. Hopkins was seen for peripheral arterial disease and severe cellulitis. He has been on antibiot ics now for about 24 hours. Today, 03/05/2019, his cellulitis has improved slightly. His cellulitis has bilateral. He remains on antibiotics. No fever. His pain is less. He has an SFA stenosis on the right side. This is definitely not related to the cellulitis. He will need an abdominal angiogr am with runoff with possible intervention. Eventually, we will probably plan to wait for about 4-6 w eeks after his antibiotic therapy before we proceed. I will make an arrangement for that as an outpa tient. The case was discussed with Dr. Izaguirre. NEFTALI/ADRI Voice ID: [id number] Report ID: [id number]
[2019-03-06] MEDS ORDERED: SODIUM HYPOCHLORITE 0.5% 473 ML TOP SCH (09:00)
== END 2019-03-05 21:45 | DRG 638 ==
LOC: ER 23:42 → ERHOLD 03-04 04:18 → 4TH 03-04 05:54
PROVIDERS: ADMIT Hospitalist; ATTEND Family Medicine
DX: E11.628 Type 2 diabetes mellitus with other skin complications (principal); L03.116 Cellulitis of left lower limb; L03.115 Cellulitis of right lower limb; M86.9 Osteomyelitis, unspecified; E87.1 Hypo-osmolality and hyponatremia; E11.69 Type 2 diabetes mellitus with other specified complication; E11.621 Type 2 diabetes mellitus with foot ulcer; L97.519 Non-pressure chronic ulcer of other part of right foot with unspecified severity; L97.529 Non-pressure chronic ulcer of other part of left foot with unspecified severity; E11.51 Type 2 diabetes mellitus with diabetic peripheral angiopathy without gangrene; I70.201 Unspecified atherosclerosis of native arteries of extremities, right leg; Z91.19 Patient's noncompliance with other medical treatment and regimen; I12.9 Hypertensive chronic kidney disease with stage 1 through stage 4 chronic kidney disease, or unspecified chronic kidney disease; E11.22 Type 2 diabetes mellitus with diabetic chronic kidney disease; E11.65 Type 2 diabetes mellitus with hyperglycemia; N18.3 Chronic kidney disease, stage 3 (moderate); D63.8 Anemia in other chronic diseases classified elsewhere; M10.9 Gout, unspecified; Z79.84 Long term (current) use of oral hypoglycemic drugs; Z79.82 Long term (current) use of aspirin; Z87.891 Personal history of nicotine dependence
CPT/HCPCS: 36415; 80048; 80053; 80202; 81001; 82962; 83605; 83735; 83880; 84100; 84550; 85025; 85379; 85652; 86140; 87040; 87070; 87077; 87186; 87205; 93923; 93925; 96374; 96375; 99251; 99285; J1650; J2270; J2405; J3475; J7030